=== PATIENT | male | born 1960 | race Caucasian/White ===

== ENCOUNTER 2019-07-05 09:18 | Emergency (ER) | payer OTHER ==
[~2019-07-05] VITALS: Ht 180.3 cm; Wt 90.7 kg
== END 2019-07-05 10:33 | disposition home or self-care (01) ==
LOC: ED 09:18
DX: S83.92XA Sprain of unspecified site of left knee, initial encounter (principal); F31.9 Bipolar disorder, unspecified; F17.200 Nicotine dependence, unspecified, uncomplicated; X50.1XXA Overexertion from prolonged static or awkward postures, initial encounter
CPT/HCPCS: 73560; 99283-25; A9270

== ENCOUNTER 2019-07-10 14:10 | Emergency (ER) | payer OTHER ==
[~2019-07-10] VITALS: Ht 180.3 cm; Wt 90.7 kg
--- OUTSIDE RECORDS SUMMARY | 2019-07-10 14:14 | XMS ---
PreManage Notification: AMARA HUGHES Security Public Health Service Officer Events No recent Security Events currently on file CRITERIA MET - [facility] - 2 Visits in 30 Days CARE PROVIDERS JAVON OLSEN Primary Care Current PHONE: Unknown [facility] Primary Care Current [facility] PHONE: Unknown Kylee has no Care Guidelines for this patient. Alexandre VISIT COUNT (12 MO.) [address] [place] [address] TOTAL 2 NOTE: Visits indicate total known visits. ED/UCC VISIT TRACKING (12 MO.) 07/10/2019 14:10 [facility] [place] TYPE: Emergency COMPLAINT: - L KNEE PAIN 07/05/2019 09:20 [facility] [place] TYPE: Emergency COMPLAINT: - LEFT KNEE PAIN DIAGNOSES: - Bipolar disorder, unspecified - Nicotine dependence, unspecified, uncomplicated - Overexertion from prolonged static or awkward postures, init - Pain in left knee - Sprain of unspecified site of left knee, initial encounter INPATIENT VISIT TRACKING (12 MO.) No inpatient visits to display in this time frame [email or web address]
== END 2019-07-10 15:39 | disposition home or self-care (01) ==
LOC: ED 14:10
DX: M25.562 Pain in left knee (principal); F17.200 Nicotine dependence, unspecified, uncomplicated
CPT/HCPCS: 96372; 99283; J1885

== ENCOUNTER 2019-07-12 13:46 | Emergency (ER) | payer OTHER ==
[~2019-07-12] VITALS: Ht 180.3 cm; Wt 90.7 kg
--- OUTSIDE RECORDS SUMMARY | 2019-07-12 13:50 | XMS ---
PreManage Notification: AMARA HUGHES Security Shop Repairer Events No recent Security Events currently on file CRITERIA MET - [facility] - 2 Visits in 30 Days CARE PROVIDERS JAVON OLSEN Primary Care Current PHONE: [phone] JAVON OLSEN Primary Care Current PHONE: Unknown [facility] Primary Care Current [place] PHONE: Unknown Kylee has no Care Guidelines for this patient. Care History Medical/Surgical 07/11/2019 [facility] - W IS UNABLE TO CONTACT PATIENT- NO NUMBER LISTED AND NO ADDRESS LISTED - PATIENT DOES NOT HAVE A PCP - PLEASE REFER PATIENT TO WALK IN CLINIC TO SET UP APT TO ESTABLISH CARE WITH A PCP. E.D. VISIT COUNT (12 MO.) [address] [facility] TOTAL 3 NOTE: Visits indicate total known visits. ED/UCC VISIT TRACKING (12 MO.) 07/12/2019 13:46 [facility] [place] TYPE: Emergency COMPLAINT: - L SIDE PAIN 07/10/2019 14:10 [facility] [place] TYPE: Emergency [...] visits to display in this time frame [email or web address]
== END 2019-07-12 14:54 | disposition home or self-care (01) ==
LOC: ED 13:46
DX: M25.562 Pain in left knee (principal); F17.200 Nicotine dependence, unspecified, uncomplicated
CPT/HCPCS: 73560; 99283-25; A9270

== ENCOUNTER 2019-07-14 10:20 | Emergency (ER) | payer OTHER ==
[~2019-07-14] VITALS: Ht 180.3 cm; Wt 90.7 kg
--- OUTSIDE RECORDS SUMMARY | 2019-07-14 10:22 | XMS ---
PreManage Notification: AMARA HUGHES Security Traveler Changer Events No recent Security Events currently on file CRITERIA MET - [facility] - 2 Visits in 30 Days CARE PROVIDERS JAVON OLSEN Primary Care Current PHONE: [phone] JAVON OLSEN Primary Care Current PHONE: Unknown JANICE STOVALL Primary Care [facility] PHONE: Unknown Kylee has no Care Guidelines for this patient. Care History Medical/Surgical 07/11/2019 [facility] - W IS UNABLE TO CONTACT PATIENT- NO NUMBER LISTED AND NO ADDRESS LISTED - PATIENT DOES NOT HAVE A PCP - PLEASE REFER PATIENT TO WALK IN CLINIC TO SET UP APT TO ESTABLISH CARE WITH A PCP. E.D. VISIT COUNT (12 MO.) [address] [facility] TOTAL 4 NOTE: Visits indicate total known visits. ED/UCC VISIT TRACKING (12 MO.) 07/14/2019 10:21 [facility] [place] TYPE: Emergency COMPLAINT: - MULTIPLE COMPLAINTS 07/12/2019 13:46 [facility] [place] TYPE: Emergency COMPLAINT: - L SIDE PAIN 07/10/2019 14:10 [facility] [place] TYPE: Emergency COMPLAINT: - L KNEE PAIN DIAGNOSES: - Sprain of unspecified site of left knee, initial encounter - Pain in left knee - Nicotine dependence, unspecified, uncomplicated - Pain in left knee 07/05/2019 09:20 [facility] [place] TYPE: Emergency COMPLAINT: - LEFT KNEE PAIN DIAGNOSES: - Bipolar disorder, unspecified - Nicotine dependence, unspecified, uncomplicated - Overexertion from prolonged static or awkward postures, init - Pain in left knee - Sprain of unspecified site of left knee, initial encounter INPATIENT VISIT TRACKING (12 MO.) No inpatient visits to display in this time frame [email or web address]
== END 2019-07-14 10:40 | disposition home or self-care (01) ==
LOC: ED 10:20
DX: M25.521 Pain in right elbow (principal); M25.562 Pain in left knee; M79.601 Pain in right arm; M79.605 Pain in left leg

== ENCOUNTER 2019-07-20 18:31 | Inpatient (IN) | payer OTHER ==
[~2019-07-20] VITALS: Ht 180.3 cm; Wt 90.7 kg
--- NOTE | 2019-07-20 23:30 | NUR ---
2250 PATIENT ARRIVED TO CCU VIA STRETCHER WITH SECURITY, LOSS PREVENTION REPRESENTATIVE AND RT. PATIENT INTUBATED. VS STABLE. PROPOFOL AT 50 MCG/MIN. VERBAL ORDERS FROM DR. GAONA TO DECREASE SEDATION. PATIENT EXTUBATED AT 2315. IMMEDIATELY REQUESTING WATER. ORIENTED TO SELF AND YEAR. REORIENTED PATIENT TO SURROUNDINGS AND EVENTS LEADING TO THIS MOMENT. PATIENT IS VERBALLY ABUSIVE AND MAKING THREATS AGAINST STAFF. STATES "JUST LET ME GO SO I CAN GO IN [place]". TELLS THAT HE "LAID DOWN TO " AT THE LONG-TERM. DENIES ANY PLAN FOR SUICIDE. STATES "I WAS JUST GOING TO LAY DOWN AND , THEY WEREN'T LETTING ME HAVE ANYTHING AT THE LONG-TERM". PATIENT PULLING AT RESTRAINTS. ORDERS FOR CONTINUED BEHAVIORAL RESTRAINTS AND [facility] EVALUATION.
--- NOTE | 2019-07-20 23:55 | NUR ---
JULIANNA AT [employer] CONTACTED FOR EVALUATION
--- NOTE | 2019-07-21 | NUR ---
PATIENT VERBALLY ABUSIVE AND THREATENING STAFF. PRN ATIVAN AND SCHEDULED SERAQUIL PROVIDED. PATIENT AGREEABLE TO MEDICATIONS. REFUSED IV FLUIDS. TOLERATES SIPS OF WATER. VS STABLE. CONTINUED ONE ON ONE MONITORING BY SECURITY.
--- NOTE | 2019-07-21 01:36 | NUR ---
[facility] IN TO EVALUATE PATIENT. PATIENT UNABLE TO BE EVAULATED AT THIS TIME. RESIDENTIAL HOLD PLACED ON PATIENT TO BE REEVALUATED WHEN IN STATE OF MIND ABLE TO ANSWER ASSESSMENT QUESTIONS.
--- NOTE | 2019-07-21 02:30 | NUR ---
0145 ENVIROMENT CLEARED OF NON-ESSENTIAL EQUIPMENT. PATIENT SLEEPING SOUNDLY. PLACED IN PAPER SCRUBS. DISCUSSED PLAN OF CARE WITH . VS Q4H AND PRN. RESTRAINTS REMOVED. PATIENT 1:1 WITH SECURITY WITHIN ARMS REACH. Q15 MIN ASSESSMENT PER PAPER FLOW SHEET IN CHART.
--- NOTE | 2019-07-21 03:30 | NUR ---
PATIENT UP TO THE BATHROOM. UNSTEADY ON FEET. ABLE TO AMBULATE WITH 1 PERSON ASSIST. LARGE VOID. BACK TO BED. VS DONE. PATIENT DROWSY. NOT ANSWERING QUESTIONS. NOT THREATENING TOWARD STAFF. 1:1 WITH SECURITY.
--- NOTE | 2019-07-21 05:01 | NUR ---
PATIENT REQUESTING PAIN MEDICATION FOR PAIN IN HIS KNEES, SHOULDERS, AND HEAD. STATES 10/10 PAIN. PRN TORADOL PROVIDED. PATIENT VERBALLY ABUSIVE TO STAFF. SECURITY 1:1. [facility] CONTACTED FOR ASSESSMENT.
--- NOTE | 2019-07-21 05:29 | NUR ---
FORTINO FROM [employer] IN TO EVALUATE PATIENT.
--- NOTE | 2019-07-21 07:16 | NUR ---
PATIENT CLEARED BY [employer]. NOTIFIED. IV SITE DC X2, WNL.
--- NOTE | 2019-07-21 07:47 | NUR ---
PATIENT DISCHARGE INSTRUCTIONS PROVIDED AND REVIEWED WITH PATIENT. TOW BAR DRIVER REMAINS AT THE BEDSDIE FOR PATIENT AND STAFF SAFETY. PATIENT STATES HE HAS NO FINISHED STOCK INSPECTOR. EDUCATED PATIENT THERE IS A CLINIC HERE AND HE CAN CHECK WITH THEM FOR ACCEPTING PHYSICIANS. NO MEDICATIONS UPON DISCHARGE. PATIENT READ THROUGH INSTRUCTIONS. [facility]. TOW BAR DRIVER WHEELED PATIENT OUT OF ROOM WITH HIS BELONGINGS. NO OTHER NEEDS AT THIS TIME. IV WAS DCD PRIOR TO DISCHARGE.
--- NOTE | 2019-07-21 08:11 | NUR ---
MED REC COMPLETE
--- NOTE | 2019-07-21 13:31 | EKG ---
[facility] [address] [facility] [place] [address] Signed Normal sinus rhythm Normal ECG No previous ECGs available Confirmed by LORENZO GAONA MD ([id number]) on 07/21/2019 1:31:12 PM Electronically Signed By: LORENZO GAONA MD 07/21/19 1331 PATIENT NAME: AMARA HUGHES Electrocardiogram DATE OF : 58 PHYSICIAN: LORENZO GAONA MD REPORT #: [id number] REPORT IS CONFIDENTIAL AND NOT TO BE RELEASED WITHOUT AUTHORIZATION
== END 2019-07-21 07:45 | disposition home or self-care (01) | DRG 885 ==
LOC: ED 18:31 → CCU 22:38
PROVIDERS: ADMIT Internal Medicine
PROC: 5A1935Z Respiratory Ventilation, Less than 24 Consecutive Hours (ICD-10-PCS; principal; 2019-07-20)
DX: F31.9 Bipolar disorder, unspecified (principal); J96.90 Respiratory failure, unspecified, unspecified whether with hypoxia or hypercapnia; G47.00 Insomnia, unspecified; F17.200 Nicotine dependence, unspecified, uncomplicated; R40.2431 Glasgow coma scale score 3-8, in the field [EMT or ambulance]
CPT/HCPCS: 31720; 36600; 70450; 70496; 70498; 71045; 80053; 81001; 82803; 84484; 85025; 93005; 93010; 94002; 96361; 99285-25; G0480; J1885; J2060; J2704; J7030

== ENCOUNTER 2019-08-10 03:12 | Emergency (ER) | payer OTHER ==
[~2019-08-10] VITALS: Ht 180.3 cm; Wt 90.7 kg
--- OUTSIDE RECORDS SUMMARY | 2019-08-10 03:14 | XMS ---
PreManage Notification: AMARA HUGHES Security Bolt Maker Events No recent Security Events currently on file CRITERIA MET - 6 ED Visits in 6 Months - [facility] - 2 Visits in 30 Days CARE PROVIDERS JAVON OLSEN Primary Care Current PHONE: [phone] JAVON OLSEN Primary Care Current PHONE: Unknown JANICE CHRISTENSEN Primary Care [facility] PHONE: Unknown Kylee has no Care Guidelines for this patient. Care History Medical/Surgical 07/11/2019 [facility] - W IS UNABLE TO CONTACT PATIENT- NO NUMBER LISTED AND NO ADDRESS LISTED - PATIENT DOES NOT HAVE A PCP - PLEASE REFER PATIENT TO WALK IN CLINIC TO SET UP APT TO ESTABLISH CARE WITH A PCP. E.D. VISIT COUNT (12 MO.) 6 [facility] TOTAL 6 NOTE: Visits indicate total known visits. ED/UCC VISIT TRACKING (12 MO.) 08/10/2019 03:12 [facility] [place] TYPE: Emergency COMPLAINT: - LEFT LEG INJURY 07/20/2019 18:[address] [facility] [place] TYPE: Emergency COMPLAINT: - UNRESPONSIVE 07/14/2019 10:[address] [facility] [place] TYPE: Emergency COMPLAINT: - MULTIPLE COMPLAINTS, MSE TO CLINIC DIAGNOSES: - Pain in right elbow - Pain in right arm - Pain in left knee - Pain in left leg 07/12/2019 13:[address] [facility] [place] TYPE: Emergency COMPLAINT: - L SIDE PAIN DIAGNOSES: - Nicotine dependence, unspecified, uncomplicated - Pain in left knee 07/10/2019 14:[address] [facility] [place] TYPE: Emergency COMPLAINT: - L KNEE [...] initial encounter INPATIENT VISIT TRACKING (12 MO.) 07/20/2019 22:38 [facility] [place] TYPE: Critical Care COMPLAINT: - RESPIRATORY FAILURE ENCEPHALOPATHY DIAGNOSES: - Respiratory failure, unsp, unsp w hypoxia or hypercapnia - Nicotine dependence, unspecified, uncomplicated - Bipolar disorder, unspecified - Insomnia, unspecified - Insomnia, unspecified - Bipolar disorder, unspecified - Janine coma scale score 3-8, in the field - Respiratory failure, unsp, unsp w hypoxia or hypercapnia - Altered mental status, unspecified - Nicotine dependence, unspecified, uncomplicated - Janine coma scale score 3-8, in the field [email or web address]
[2019-08-10] MEDS ORDERED: PROZAC10 MG (03:26)
[2019-08-10] MEDS ORDERED: LISINOPRIL10 MG (03:27)
[2019-08-10] MEDS ORDERED: CRUTCH1 EACH (06:42)
[2019-08-10] MEDS ORDERED: NORCO 5-325 TA1 EACH PO (06:42)
[2019-08-11] MEDS ORDERED: IBU600 MG PO (11:48)
== END 2019-08-10 04:15 | disposition home or self-care (01) ==
LOC: ED 03:12
DX: S01.01XA Laceration without foreign body of scalp, initial encounter (principal); S80.02XA Contusion of left knee, initial encounter; S70.212A Abrasion, left hip, initial encounter; F17.200 Nicotine dependence, unspecified, uncomplicated; Y04.2XXA Assault by strike against or bumped into by another person, initial encounter
CPT/HCPCS: 12001; 73502; 73560; 99283-25

== ENCOUNTER 2019-08-10 10:35 | Emergency (ER) | payer OTHER ==
[~2019-08-10] VITALS: Ht 180.3 cm; Wt 81.7 kg
[~2019-08-10 10:35] MED LIST: CRUTCH1 EACH; LISINOPRIL10 MG; NORCO 5-325 TA1 EACH PO; PROZAC10 MG
[2019-08-11] MEDS ORDERED: IBU600 MG PO (11:48)
== END 2019-08-10 13:33 | disposition home or self-care (01) ==
LOC: ED 10:35
DX: S82.142A Displaced bicondylar fracture of left tibia, initial encounter for closed fracture (principal); S70.02XA Contusion of left hip, initial encounter; S20.411A Abrasion of right back wall of thorax, initial encounter; I10 Essential (primary) hypertension; F31.9 Bipolar disorder, unspecified; F17.200 Nicotine dependence, unspecified, uncomplicated; Y04.2XXA Assault by strike against or bumped into by another person, initial encounter
CPT/HCPCS: 72192; 73700; 99284-25; A9270

== ENCOUNTER 2019-08-11 09:40 | Emergency (ER) | payer OTHER ==
[~2019-08-11] VITALS: Ht 180.3 cm; Wt 81.7 kg
[2019-08-11] MEDS ORDERED: IBU600 MG PO (11:48)
== END 2019-08-11 12:03 | disposition home or self-care (01) ==
LOC: ED 09:40
DX: T39.1X1A Poisoning by 4-Aminophenol derivatives, accidental (unintentional), initial encounter (principal); S82.142D Displaced bicondylar fracture of left tibia, subsequent encounter for closed fracture with routine healing; X58.XXXD Exposure to other specified factors, subsequent encounter; F31.9 Bipolar disorder, unspecified; I10 Essential (primary) hypertension; F17.200 Nicotine dependence, unspecified, uncomplicated
CPT/HCPCS: 99284

== ENCOUNTER 2019-09-25 16:54 | Emergency (ER) | payer OTHER ==
[~2019-09-25] VITALS: Ht 180.3 cm; Wt 77.1 kg
[~2019-09-25 16:54] MED LIST changes: +IBU600 MG PO
[2019-09-25] MEDS ORDERED: LISINOPRIL20 MG PO (17:06)
[2019-09-25] MEDS ORDERED: FLUOXETINE HCL20 MG PO (17:06)
[2019-09-25] MEDS ORDERED: HYDROCHLOROTH12.5 M1 PO (17:06)
== END 2019-09-25 19:17 | disposition home or self-care (01) ==
LOC: ED 16:54
DX: F31.9 Bipolar disorder, unspecified (principal); I10 Essential (primary) hypertension; Z87.891 Personal history of nicotine dependence; Z79.899 Other long term (current) drug therapy
CPT/HCPCS: 80053; 80176; 81001; 84443; 85025; 99283; G0480

== ENCOUNTER 2023-01-28 04:42 | Emergency (ER) | payer OTHER ==
[~2023-01-28] VITALS: Ht 180.3 cm; Wt 87.0 kg
[~2023-01-28 04:42] MED LIST changes: +FLUOXETINE HCL20 MG PO; +HYDROCHLOROTH12.5 M1 PO; +LISINOPRIL20 MG PO
[2023-01-28] MEDS ORDERED: HYDROCHLOROTH12.5 MG PO (05:03)
[2023-01-28] MEDS ORDERED: OLANZAPINE10 MG PO (05:04)
[2023-01-28 05:39] VITALS: BP 129/87
== END 2023-01-28 05:39 | disposition home or self-care (01) ==
LOC: ED 04:42
DX: L02.413 Cutaneous abscess of right upper limb (principal); I10 Essential (primary) hypertension; Z87.891 Personal history of nicotine dependence; Z79.899 Other long term (current) drug therapy
CPT/HCPCS: 87205; 99283